=== PATIENT | male | born 1960 | race Caucasian/White ===

== ENCOUNTER 2017-05-29 06:36 | Inpatient (IN) | payer SELFPAY ==
--- NOTE | 2017-05-29 06:43 | CPEKG ---
Heart Rate: 104 RR Interval: 577 P-R Interval: 108 QRSD Interval: 86 QT Interval: 348 QTC Interval: 458 P [place]: 36 QRS [place]: -39 T Wave [place]: 33 EKG Severity - OTHERWISE NORMAL ECG - EKG Impression: SINUS TACHYCARDIA EKG Impression: LEFT AXIS DEVIATION Electronically Signed By: Tanner Lyons 29-May-2017 15:57:00
[2017-05-29] MEDS ORDERED: NS 1,000 ML IV ONE ×2 (06:50→07:02)
--- NOTE | 2017-05-29 06:54 | EDPHY ---
H & P Stated Complaint: CP-cough fever Source: Patient, EMS - Personal History Current Tetanus Diphtheria and Acellular Pertussis (TDAP): Yes - Medical/Surgical History Hx Asthma: No Hx Chronic Respiratory Disease: No Hx Diabetes: No Hx Cardiac Disease: Yes Hx Renal Disease: No Hx Cirrhosis: No Hx Alcoholism: No Hx HIV/AIDS: No Hx Splenectomy or Spleen Trauma: No Other PMH: [facility] stent 04/18/16, elbow surgery - Social History Smoking Status: Heavy smoker HPI/ROS: HPI The patient presents with chest pain which began at about 1:00 a.m. this morning and awoke him from sleep. It is described as a constant, crushing pain which radiates to his left arm. It is moderate in severity. It is associated with nausea and diaphoresis. Over the last 2 days, the patient has had productive cough, fatigue, rhinorrhea, nausea. He is staying at the [facility] and says many people are sick there. He does have a history of CAD, he had cardiac stents placed in April of 2016 at [facility] he believes. He does not know any other information about this. He is supposed to be on labetalol and aspirin, however is not taking these medications for the last several months. REVIEW OF SYSTEMS Constitutional: No fever, no chills. Eyes: No discharge. ENT: No sore throat. Cardiovascular: Positive for chest pain, no palpitations. Respiratory: Positive for cough, no shortness of breath. Gastrointestinal: No abdominal pain, no vomiting. Genitourinary: No hematuria. Musculoskeletal: No back pain. Skin: No rashes. Neurological: No headache. PMHx: CAD, stents in place from outside hospital Soc Hx: 1/2 pack per day smoker, homeless, usually resides in [place] PHYSICAL General Appearance: Alert, no distress Eyes: Pupils equal and round no pallor or injection ENT, Mouth: Mucous membranes dry Respiratory: There are no retractions, lungs are clear to auscultation Cardiovascular: Tachycardic rate, regular rhythm Gastrointestinal: Abdomen is soft and non-tender, no masses, bowel sounds normal Neurological: A&O, moves all extremities Skin: Warm and dry, no rashes Musculoskeletal: Neck is supple non tender Extremities: symmetrical, full range of motion Psychiatric: Patient is oriented X 3, there is no agitation (Riguzzi,Anh) Constitutional: Initial Vital Signs Temperature (C) 38 C 05/29/17 06:40 Heart Rate 100 05/29/17 06:40 Respiratory Rate 18 05/29/17 06:40 Blood Pressure 130/77 H 05/29/17 06:40 O2 Sat (%) 92 05/29/17 06:40 O2 Delivery Mode Room Air O2 (L/minute) 2 Allergies/Adverse Reactions: No Known Allergies Allergy (Unverified 05/29/17 06:39) Home Medications: Medication Instructions Recorded NK [No Known Home Meds] 05/29/17 Medical Decision Making - Diagnostics EKG Interpretation: EKG: Complete interpretation has been separately recorded in the [employer] archive. Summary impression: Normal sinus rhythm with some T-wave flattening in inferior leads (Anh Link) Imaging Results: Imaging Impressions Chest X-Ray 05/29/17 06:50 Impression: 1. Focal consolidation suspected inferior aspect right upper lobe in the suprahilar region. Consolidation suspected inferior aspect right upper lobe in the suprahilar region. Consider follow-up chest x-ray after treatment to confirm resolution and to rule out mass. These findings were discussed by telephone with Dr. Tanner Lyons at 0800 hrs. ED Course/Re-evaluation: Patient is also seen by me at 7:05 a.m.. I reviewed the history of coronary artery disease and stent placed in [place] in April 2016. He has done well until last night and had crushing pressure-type chest discomfort with radiation. He also has shortness of breath. Patient is also ill with fever and likely influenza Heart lung exam shows mild tachycardia and mild inspiratory expiratory rhonchi. EKG reviewed by me shows sinus tachycardia normal interval. Left axis deviation. QRS otherwise normal no significant ST elevation or depression. No arrhythmia. The rate is 104 Cardiac labs are sent. Influenza is sent. IV of normal saline with initial target of 1 L. Tylenol for his fever. Patient is already received aspirin for chest pain. On re-evaluation patient is stable. He has influenza. He is given Tamiflu in the emergency department I consulted discussed case with Dr. Gonzales, hospitalist, who agrees to the admission (Tanner Lyons) Differential Diagnosis: This is a 56-year-old male with past medical history of CAD take by his report, status post cardiac stenting in April of 2016 who presents brought in by ambulance from the [facility] for chest pain which has been present since 1:00 a.m. and awoke him from sleep. This is in the setting of 2 days of a cough, rhinorrhea, fevers, nausea. Differential diagnosis includes ACS, influenza, pneumonia, pericarditis. Patient received aspirin in the field as well as nitroglycerin with some improvement in his symptoms. Plan for chest x-ray, EKG, labs include influenza testing. He will likely require admission to the hospital. At 7:00 a.m., at change of shift, Dr. Lyons assumed care of this patient pending all of his laboratory testing and chest x-ray. (Anh Link) - Data Points Laboratory Results: Laboratory Results 05/29/17 06:59 05/29/17 06:45 05/29/17 05/29/17 05/29/17 06:59 06:59 06:45 WBC 4.25 10^3/uL 10^3/uL (3.80-9.50) RBC 4.53 10^6/uL 10^6/uL (4.40-6.38) Hgb 15.3 g/dL g/dL (13.7-17.5) Hct 41.7 % % (40.0-51.0) MCV 92.1 fL fL (81.5-99.8) MCH 33.8 pg pg (27.9-34.1) MCHC 36.7 g/dL g/dL (32.4-36.7) RDW 13.9 % % (11.5-15.2) Plt Count 75 10^3/uL L 10^3/uL (150-400) MPV 12.3 fL H fL (8.7-11.7) Neut % (Auto) 87.3 % H % (39.3-74.2) Lymph % (Auto) 4.5 % L % (15.0-45.0) Emmet % (Auto) 7.5 % % (4.5-13.0) Eos % (Auto) 0.0 % L % (0.6-7.6) Baso % (Auto) 0.2 % L % (0.3-1.7) Nucleat RBC Rel Count 0.0 % % (0.0-0.2) Absolute Neuts (auto) 3.71 10^3/uL 10^3/uL (1.70-6.50) Absolute Lymphs (auto) 0.19 10^3/uL L 10^3/uL (1.00-3.00) Absolute Monos (auto) 0.32 10^3/uL 10^3/uL (0.30-0.80) Absolute Eos (auto) 0.00 10^3/uL L 10^3/uL (0.03-0.40) Absolute Basos (auto) 0.01 10^3/uL L 10^3/uL (0.02-0.10) Absolute Nucleated RBC 0.00 10^3/uL 10^3/uL (0-0.01) Immature Gran % 0.5 % % (0.0-1.1) Immature Gran # 0.02 10^3/uL 10^3/uL (0.00-0.10) Sodium 133 mEq/L L mEq/L (135-145) Potassium 4.2 mEq/L mEq/L (3.5-5.2) Chloride 97 mEq/L mEq/L (97-110) Carbon Dioxide 25 mEq/l mEq/l (22-31) Anion Gap 11 mEq/L mEq/L (8-16) BUN 18 mg/dL mg/dL (7-23) Creatinine 1.0 mg/dL mg/dL (0.7-1.3) Estimated GFR > 60 Glucose 126 mg/dL H mg/dL (70-100) Calcium 8.3 mg/dL L mg/dL (8.5-10.4) Troponin I 0.019 ng/mL ng/mL (0.000-0.034) Nasal Influenza A PCR FLU A DETECTED (NEGATIVE) Nasal Influenza B PCR NEGATIVE FOR FLU B (NEGATIVE) Medications Given: Acetaminophen (Tylenol) 1,000 mg PO Q8 LAM Stop: 11/25/17 13:59 Last Admin: 05/29/17 13:01 Dose: 1,000 mg Aspirin Buffered (Aspirin Ec) 81 mg PO DAILY LAM Stop: 11/25/17 10:59 Last Admin: 05/29/17 11:59 Dose: 81 mg Azithromycin 500 mg/ Dextrose 255 mls @ 255 mls/hr IV DAILY [facility] PRN Reason: Protocol Stop: 06/28/17 10:59 Last Admin: 05/29/17 13:01 Dose: 255 mls Ceftriaxone Sodium/Dextrose (Rocephin 1 Gm (Premix)) 50 mls @ 100 mls/hr IV DAILY LAM PRN Reason: Protocol Stop: 06/28/17 10:59 Last Admin: 05/29/17 11:59 Dose: 50 mls Discontinued Medications Acetaminophen (Tylenol) 1,000 mg PO EDNOW ONE Stop: 05/29/17 07:03 Last Admin: 05/29/17 07:17 Dose: 1,000 mg Sodium Chloride (Ns) 1,000 mls @ 0 mls/hr IV EDNOW ONE; Wide Open PRN Reason: Protocol Stop: 05/29/17 06:51 Last Admin: 05/29/17 06:59 Dose: 1,000 mls Sodium Chloride (Ns) 1,000 mls @ 0 mls/hr IV EDNOW ONE; Wide Open PRN Reason: Protocol Stop: 05/29/17 07:03 Last Admin: 05/29/17 07:17 Dose: 1,000 mls Ibuprofen (Motrin) 600 mg PO EDNOW ONE Stop: 05/29/17 07:51 Last Admin: 05/29/17 07:53 Dose: 600 mg Ibuprofen (Motrin) 400 mg PO ONCE ONE Stop: 05/29/17 14:31 Last Admin: 05/29/17 14:31 Dose: 400 mg Oseltamivir Phosphate (Tamiflu) 75 mg PO EDNOW ONE Stop: 05/29/17 07:50 Last Admin: 05/29/17 07:52 Dose: 75 mg Departure - Departure Disposition: [facility] Inpatient Acute Clinical Impression: Chest pain Qualifiers: Chest pain type: unspecified Qualified Code(s): R07.9 - Chest pain, unspecified CAD (coronary artery disease) Qualifiers: Coronary Disease-Associated Artery/Lesion type: unspecified vessel or lesion type [place] vs. transplanted heart: [place] heart Associated angina: angina presence unspecified Qualified Code(s): I25.10 - Atherosclerotic heart disease of [place] coronary artery without angina pectoris Condition: Fair
[2017-05-29] MEDS ORDERED: ACETAMINOPHEN 500 MG TAB PO ONE (07:02)
[2017-05-29 07:03] LABS: PLATELET COUNT 75 10^3/uL (150-400)
[2017-05-29] MEDS ORDERED: OSELTAMIVIR PHOSPHATE 75 MG CAP PO ONE (07:49)
[2017-05-29] MEDS ORDERED: IBUPROFEN 600 MG TAB PO ONE ×2 (07:50)
[2017-05-29] MEDS ORDERED: OSELTAMIVIR PHOSPHATE 75 MG CAP ONE (07:50)
[2017-05-29] MEDS ORDERED: ONDANSETRON DISINTEGRATING 4 MG TAB PO PRN (10:53)
[2017-05-29] MEDS ORDERED: ONDANSETRON 4 MG/2 ML VIAL IVP PRN (10:53)
[2017-05-29] MEDS ORDERED: IOPAMIDOL (ISOVUE-300) 100 ML BTL ONE (11:28)
--- NOTE | 2017-05-29 11:34 | GHP ---
[f rep st] HISTORY AND PHYSICAL DATE OF ADMISSION: 05/29/2017 HISTORY OF PRESENT ILLNESS: The patient is a 56-year-old gentleman with a history of coronary diseas e and stents placed in April 2016 in [place], anatomy unknown. He is currently traveling [facility] on his way back to [place]. He is originally from [place]. For the last 24 hours to 48 hours, he has had some myalgias and cough and fever, chills and malaise. Overnight he had chest scott n that radiated to his left arm with diaphoresis. This is similar to his known anginal equivalents. He has also had fatigue, rhinorrhea, nausea. Did not get a flu shot. He has been in the [facility] for the last couple of days with a number sick contacts. He has not had lower extremity edema, PND or orthopnea and he does not give a history of anginal symp toms. He is not taking any medicines. He had previously been on labetalol and aspirin and recalls t aking Plavix for year following his surgery. REVIEW OF SYSTEMS: Complete 10-point review of systems conducted, negative except noted in the HPI. PAST MEDICAL HISTORY: Coronary disease, hypertension. ALLERGIES: No known drug allergies. CURRENT MEDICATIONS: None. FAMILY HISTORY: Reviewed and unremarkable. SOCIAL HISTORY: He is a smoker. He is [place]. 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 He claims to have never misspelled a tattoo. He denies heavy alcohol use. PHYSICAL EXAM: VITAL SIGNS: Temp 38, T-max 39.3, now 37.7. Blood pressure 118/65, pulse 86, breath ing 18 times a minute, 94% on room air. GENERAL: No acute distress. HEENT: Sclerae anicteric. Or opharynx clear. Mucous membranes are moist. NECK: Supple without lymphadenopathy or JVD. LUNGS: Rhonchi bilaterally, right greater than left. HEART: S1, S2 without murmurs. ABDOMEN: Soft, nonte nder, nondistended. LOWER EXTREMITIES: Without edema. Calves nontender. SKIN: Without rash. The re are multiple tattoos. LABS: White count 4.3, hematocrit 41, platelets are 75,000, no prior. Sodium 133, potassium 4.2, ch loride 97, bicarb 25, BUN 18, creatinine 1.0, glucose 126. Troponin 0.019. Influenza A positive. C hest x-ray, interpreted by me, shows right upper lobe infiltrate with bilateral airspace disease. It is a mass like looking infiltrate. EKG, interpreted by me, shows sinus tach at 104 with borderline left axis deviation. There are no ST or T-wave changes. I discussed the case with Dr. Anh Link. ASSESSMENT AND PLAN: A 56-year-old gentleman with influenza A, pneumonia, chest pain. 1. Influenza A. We will treat him with Tamiflu. 2. Pneumonia. I think the patient has a secondary bacterial pneumonia. We will start ceftriaxone a nd azithromycin. I am not worried about aspiration. We will check a CT given his longstanding smoki ng history as it is somewhat mass-like looking. 3. Chest pain. This is concerning for his anginal equivalent. He has an indeterminate troponin. W e will start him on aspirin, check a lipid panel, cycle his troponins and follow on telemetry. Stres s test may be indicated but will hold off on it today. 4. Thrombocytopenia, mild, follow. 5. Hyponatremia. This is likely secondary to poor p.o. intake. We will follow. 6. Hyperglycemia, mild, follow. DISPOSITION: Inpatient status. /[id number]/MODL
[2017-05-29] MEDS: ASPIRIN EC 81 MG TAB PO SCH (11:59)
[2017-05-29] MEDS: AZITHROMYCIN IV 500 MG in D5W 250 ML IV SCH (13:01)
[2017-05-29] MEDS: ACETAMINOPHEN 500 MG TAB PO SCH ×2 (13:01→20:33)
[2017-05-29] MEDS ORDERED: ACETAMINOPHEN 325 MG TAB PO SCH (14:00)
[2017-05-29] MEDS ORDERED: IBUPROFEN 200 MG TAB PO ONE (14:30)
[2017-05-29] MEDS: OSELTAMIVIR PHOSPHATE 75 MG CAP PO SCH (17:06)
--- NOTE | 2017-05-29 17:22 | PDMN ---
Medical Necessity Medical necessity: Pt meets INPT criteria per and MCG M-282 Pneumonia, Community Acquired (est. LOS >2 MN for eval/tx of influenza A with secondary bacterial pneumonia requiring IVABx x2; chest pain with hx CAD/stents, hyponatremia, hyperglycemia, thrombocytopenia).
[2017-05-30 04:04] LABS: PLATELET COUNT 65 10^3/uL (150-400)
[2017-05-30] MEDS: ACETAMINOPHEN 500 MG TAB PO SCH ×3 (05:24→21:28)
[2017-05-30] MEDS: GUAIFENESIN/DM 10 ML UDCUP PO PRN ×2 (05:37→12:27)
[2017-05-30] MEDS: OSELTAMIVIR PHOSPHATE 75 MG CAP PO SCH ×2 (07:46→19:05)
[2017-05-30] MEDS: ASPIRIN EC 81 MG TAB PO SCH (07:47)
[2017-05-30] MEDS: AZITHROMYCIN IV 500 MG in D5W 250 ML IV SCH (08:53)
[2017-05-30] MEDS ORDERED: ENOXAPARIN 40 MG/0.4 ML SYR SC SCH (09:00)
[2017-05-30] MEDS ORDERED: NS 1,000 ML IV ONE (09:00)
--- NOTE | 2017-05-30 09:43 | HOSPPROG ---
Hospitalist Progress Note Assessment/Plan: 56 yo M w influenza, CAP, hypoxemic respiratory failure influenza: tamiflu CAP: secondary to influenza no mass seen on CT but limited by dense infiltrate follow up CT in 6 months day 06/28 abx. cuurently ceftriaxone azithro thrombocytopenia: per pt, chronic hold LMWH tobacco: rec cessation dispo: inpatient Subjective: case d/w dr sandoval. CT w dense r sided pneumonia (interp by me) Objective: Vital Signs Temp Pulse Resp BP Pulse Ox 36.6 C 67 18 90/64 L 94 05/30/17 08:00 05/30/17 08:00 05/30/17 08:00 05/30/17 08:00 05/30/17 08:00 Laboratory Results 05/30/17 03:45 05/30/17 03:45 05/29/17 05/30/17 05/31/17 05:59 05:59 05:59 Intake Total 950 Output Total 495 Balance 455 - Physical Exam Constitutional: no apparent distress, appears nourished Eyes: PERRL, anicteric sclera Ears, Nose, Mouth, Throat: moist mucous membranes, hearing normal Cardiovascular: regular rate and rhythym, no murmur, rub, or gallop Respiratory: no respiratory distress, no rales or rhonchi Gastrointestinal: normoactive bowel sounds, soft, non-tender abdomen Genitourinary: no bladder fullness, No patel in urethra Skin: warm, normal color Musculoskeletal: full muscle strength Neurologic: AAOx3 ICD10 Worksheet Patient Problems: Problems Problem Status Onset CAD (coronary artery disease) Acute Chest pain Acute
--- NOTE | 2017-05-30 11:24 | ASMTCMCOM ---
CM Note CM Note Notes: Chart reviewed. %% year old make from homeless custodial with influenza A and pneumonia. On IV ANTB. Likely dc back to custodial when medically stable will meet with him to provide resources if needed, CM to follow. Date Signed: 05/30/2017 11:23 AM Electronically Signed By:Isabel Calderón RN
[2017-05-30] MEDS: KETOROLAC 15 MG/1 ML SDV IVP PRN ×2 (15:07→21:29)
--- NOTE | 2017-05-30 21:13 | HOSPPROG ---
Hospitalist Progress Note Assessment/Plan: Called to pts bedside as his BP is low. Systolic 80's Upon arrival latest BP is 77/48 He is diaphoretic He reports fever difficult with taking a deep breath + cough + void, but concentrated BP is typically normal, no hx of hypotension No urinary sx's O: VSS reviewed, Hypotension, HR 90s, RR 16, saturation on 1 L Gen: diaphoretic HEENT: MM Dry CV: RRR Lungs: decreased bilateral, crackles right side abd: s/nt/nd ext: no edema #possible sepsis #pneumonia #influenza #hx of CAD, denies CHF plan: he does not have any leukocytosis and the process is likely viral will cont abx as is and check a pc and repeat cbc. If these are abnormal will consider changing abx cont with tamiflu Fluid challenge. If BP cont to be low, will need transfer to the ICU for pressors total critical care time is 33 mins. Objective: Vital Signs Temp Pulse Resp BP Pulse Ox 36.6 C 66 14 85/53 L 96 05/30/17 20:00 05/30/17 20:00 05/30/17 20:00 05/30/17 20:00 05/30/17 20:00 Laboratory Results 05/30/17 03:45 05/30/17 03:45 05/29/17 05/30/17 05/31/17 05:59 05:59 05:59 Intake Total 950 4761 Output Total 747 750 Balance 455 0366 ICD10 Worksheet Patient Problems: Problems Problem Status Onset CAD (coronary artery disease) Acute Chest pain Acute
[2017-05-30] MEDS ORDERED: NS BOLUS 1000 ML (Wide open) IV ONE (21:30)
[2017-05-30 21:47] LABS: PLATELET COUNT 58 10^3/uL (150-400)
[2017-05-30] MEDS ORDERED: ALTEPLASE 2 MG VIAL IVP PRN (22:08)
[2017-05-30] MEDS: NS 1,000 ML IV SCH (22:20)
[2017-05-31] MEDS ORDERED: NS BOLUS 1000 ML (Wide open) IV ONE (03:00)
[2017-05-31] MEDS: GUAIFENESIN/DM 10 ML UDCUP PO PRN ×4 (04:05→18:45)
[2017-05-31] MEDS: KETOROLAC 15 MG/1 ML SDV IVP PRN ×3 (06:27→21:18)
[2017-05-31] MEDS: ACETAMINOPHEN 500 MG TAB PO SCH ×3 (06:27→21:19)
[2017-05-31] MEDS: NS 1,000 ML IV SCH ×2 (06:28→14:14)
[2017-05-31] MEDS: OSELTAMIVIR PHOSPHATE 75 MG CAP PO SCH ×2 (08:44→18:02)
[2017-05-31] MEDS: ASPIRIN EC 81 MG TAB PO SCH (08:44)
[2017-05-31] MEDS: AZITHROMYCIN IV 500 MG in D5W 250 ML IV SCH (09:36)
[2017-05-31] MEDS: IPRATROPIUM/ALBUTEROL 3 ML DEYVIAL IH SCH ×2 (11:03→16:29)
--- NOTE | 2017-05-31 15:35 | HOSPPROG ---
Hospitalist Progress Note Assessment/Plan: 56 yo M w influenza, CAP, hypoxemic respiratory failure # Acute influenza A - continue tamiflu # Acute CAP- concern for secondary bacterial infection - Procalcitonin > 6 CT chest (personally reviewed and interpreted) confirms bilateral infiltrates - cont ceftriaxone and azithromycin # AHRF - 2/2 CAP - wheezing on exam - add duonebs - cont tamiflu and antibiotics # Acute hypotension 2/2 infection - continue fluid resuscitation until PO adequate # thrombocytopenia: per pt, chronic- possibly due to ETOH - hold LMWH # tobacco: rec cessation # dispo: inpatient as requires ongoing IVF support and monitoring I have discussed case with RN - pt should not require PICC as responding appropriately to IVF Subjective: still feels terrible Objective: Vital Signs Temp Pulse Resp BP Pulse Ox 36.7 C 63 15 101/67 94 05/31/17 11:56 05/31/17 11:56 05/31/17 11:56 05/31/17 11:56 05/31/17 11:56 Laboratory Results 05/30/17 21:30 05/31/17 04:26 05/30/17 05/31/17 06/01/17 05:59 05:59 05:59 Intake Total 950 5038 1260 Output Total 495 1075 625 Balance 455 3963 635 - Physical Exam Constitutional: appears nourished Eyes: anicteric sclera Ears, Nose, Mouth, Throat: moist mucous membranes Cardiovascular: regular rate and rhythym Respiratory: rhonchi, No expiratory wheeze Gastrointestinal: normoactive bowel sounds Genitourinary: no bladder fullness Skin: warm Musculoskeletal: No asymmetric calves Neurologic: AAOx3 Psychiatric: interacting appropriately Lymph, Heme, Immunologic: no cervical LAD ICD10 Worksheet Patient Problems: Problems Problem Status Onset CAD (coronary artery disease) Acute Chest pain Acute
[2017-06-01] MEDS: IPRATROPIUM/ALBUTEROL 3 ML DEYVIAL IH SCH ×5 (00:34→21:09)
[2017-06-01] MEDS: KETOROLAC 15 MG/1 ML SDV IVP PRN ×3 (04:20→20:17)
[2017-06-01] MEDS: ACETAMINOPHEN 500 MG TAB PO SCH ×3 (04:22→21:42)
[2017-06-01] MEDS: ASPIRIN EC 81 MG TAB PO SCH (08:48)
[2017-06-01] MEDS: OSELTAMIVIR PHOSPHATE 75 MG CAP PO SCH ×2 (08:48→18:22)
[2017-06-01] MEDS: GUAIFENESIN/DM 10 ML UDCUP PO PRN ×2 (09:12→15:50)
[2017-06-01] MEDS: AZITHROMYCIN IV 500 MG in D5W 250 ML IV SCH (09:56)
[2017-06-01] MEDS ORDERED: PROTOCOL K PHOSPHATE 1 DOSE IV PRN (11:09)
--- NOTE | 2017-06-01 17:24 | HOSPPROG ---
Hospitalist Progress Note Assessment/Plan: 56 yo M w influenza, CAP, hypoxemic respiratory failure # Acute influenza A - continue tamiflu # Acute CAP- concern for secondary bacterial infection - Procalcitonin > 6 CT chest (personally reviewed and interpreted) confirms bilateral infiltrates - cont ceftriaxone and azithromycin - transition to p. O. levofloxacin at disposition # AHRF - 2/2 CAP - wheezing on exam- oxygen saturation 96% on 2 L - continue duonebs - cont tamiflu and antibiotics - wean oxygen as able # Acute hypotension 2/2 infection - improved after fluid resuscitation- systolic blood pressure now 110-120 - DC IV fluids - continue to monitor # thrombocytopenia: per pt, chronic- possibly due to ETOH - hold LMWH # tobacco: rec cessation # dispo: inpatient as requires ongoing IVF support and monitoring I have discussed case with RN - we will discontinue IV fluid resuscitation patient's systolic blood pressures are improved p. O. intake improving Subjective: Feeling better Objective: Vital Signs Temp Pulse Resp BP Pulse Ox 36.9 C 76 18 122/73 H 91 L 06/01/17 15:58 06/01/17 15:58 06/01/17 15:58 06/01/17 15:58 06/01/17 15:58 Laboratory Results 06/01/17 04:17 06/01/17 04:17 05/31/17 06/01/17 06/02/17 05:59 05:59 05:59 Intake Total 5038 5280 625 Output Total 1075 2750 1350 Balance 3963 2530 -725 - Physical Exam Constitutional: unkempt Eyes: anicteric sclera Ears, Nose, Mouth, Throat: moist mucous membranes Cardiovascular: regular rate and rhythym Respiratory: no respiratory distress, No expiratory wheeze Gastrointestinal: normoactive bowel sounds Genitourinary: no bladder fullness Skin: warm Musculoskeletal: No asymmetric calves Neurologic: AAOx3 Psychiatric: interacting appropriately Lymph, Heme, Immunologic: no cervical LAD ICD10 Worksheet Patient Problems: Problems Problem Status Onset CAD (coronary artery disease) Acute Chest pain Acute
[2017-06-02] MEDS: IPRATROPIUM/ALBUTEROL 3 ML DEYVIAL IH SCH ×2 (05:03→11:26)
[2017-06-02] MEDS: ACETAMINOPHEN 500 MG TAB PO SCH (06:43)
[2017-06-02] MEDS: GUAIFENESIN/DM 10 ML UDCUP PO PRN (06:47)
[2017-06-02] MEDS: KETOROLAC 15 MG/1 ML SDV IVP PRN (08:23)
[2017-06-02] MEDS: OSELTAMIVIR PHOSPHATE 75 MG CAP PO SCH (08:24)
[2017-06-02] MEDS: ASPIRIN EC 81 MG TAB PO SCH (08:24)
[2017-06-02] MEDS: AZITHROMYCIN IV 500 MG in D5W 250 ML IV SCH (08:24)
[2017-06-02 08:37] VITALS: TEMP 98.3
[2017-06-02 12:11] VITALS: BP 142/83; PULSE 62; RESP 18; O2SAT 94
--- NOTE | 2017-06-02 18:42 | GDS ---
[f rep st] DISCHARGE SUMMARY DISCHARGE DIAGNOSES: Include: 1. Acute influenza A. 2. Acute community-acquired pneumonia, presumed secondary to bacterial. 3. Acute hypoxic respiratory failure. 4. Sepsis secondary to pneumonia. 5. Homelessness. HISTORY OF PRESENT ILLNESS: This is a 56-year-old male, who presented in acute respiratory distress. For details of patient's initial presentation, please see the history and physical dated 8. CONSULTATIVE SERVICES: None. PROCEDURES: A CT chest for the pain and confirms multilobar pneumonia. HOSPITAL COURSE BY ISSUE: 1. Acute influenza A. Patient was initiated on Tamiflu and will complete his final day of treatment post disposition. 2. Multilobar pneumonia, presumed bacterial. The patient had confirmed infiltrate in both lung fiel ds. Procalcitonin was greater than 6, and the decision to continue antibiotic therapy with made. Th e patient will complete a 7-day course of antibiotics with 2 doses of 750 mg levofloxacin daily post disposition. 3. Sepsis. The patient received aggressive fluid resuscitation with improvement in his hypotension and laboratory findings. The patient's vital signs and labs are stable on the day of disposition. 4. Acute hypoxic respiratory failure. Patient was weaned off oxygen prior to disposition. 5. Homelessness. Patient was provided discharge resources for correction and [facility]. MEDICATIONS AT THE TIME OF DISPOSITION: Please reference the medication reconciliation form printed on 06/02/2017. FOLLOWUP APPOINTMENTS: Include with PCP upon returning home to [place]. PENDING STUDIES: At the time of this dictation, include blood cultures drawn at admission which are preliminary no growth to date. I spent greater than 30 minutes in the planning and coordination of this discharge. /[id number]/MODL
--- NOTE | 2017-06-03 12:47 | ASDISCHSUM ---
Discharge Information Plan Status:Home with No Needs Medically Cleared to Leave:06/01/2017 Discharge Date:06/02/2017 03:02 PM D/C Disposition: ADT D/C Disposition:Home, Routine, Self-Care Projected Discharge Date:06/02/2017 12:00 AM Transportation at D/C: Discharge Delay Reason: Follow-Up Date:06/02/2017 12:00 AM Discharge Slot: Final Diagnosis: Placement Information Patient Contact Information Contact Name:ZOE Relationship: Address:[address] City:[place] Alternate Phone: State/Zip Code:[place] [address] Email: Financial Information Financial Class:Self-Pay Primary Plan Desc:SELF PAY Primary Plan Number: Secondary Plan Desc: Secondary Plan Number: Assessment Information [facility] CM Progress Note CM Note CM Note Notes: Chart reviewed. %% year old make from homeless assisted with influenza A and pneumonia. On IV ANTB. Likely dc back to assisted when medically stable will meet with him to provide resources if needed, CM to follow. Date Signed: 05/30/2017 11:23 AM Electronically Signed By:Isabel Calderón RN Case Management Discharge Plan Note Case Management Discharge Discharge Order Complete? Answers: Yes Patient to Obtain Answers: via MAP Medications Transportation Arranged Answers: Bus Tokens Discharge Comments Notes: Patient discharged to the streets. Bed reserved at [facility] and bus pass given. Medications provided by [facility]. Date Signed: 06/02/2017 01:28 PM Electronically Signed By:Lillian Tucker RN Intervention Information
== END 2017-06-02 15:02 | disposition home or self-care (01) | DRG 871 ==
LOC: INTOOBSV 07:59 → F2W 09:00 → OBSVTOIN 16:03
PROVIDERS: ADMIT Internal Medicine; ATTEND Internal Medicine
DX: A41.9 Sepsis, unspecified organism (principal); J10.08 Influenza due to other identified influenza virus with other specified pneumonia; J15.9 Unspecified bacterial pneumonia; J96.01 Acute respiratory failure with hypoxia; E87.1 Hypo-osmolality and hyponatremia; I95.9 Hypotension, unspecified; D69.6 Thrombocytopenia, unspecified; I25.10 Atherosclerotic heart disease of native coronary artery without angina pectoris; I25.2 Old myocardial infarction; I10 Essential (primary) hypertension; Z95.5 Presence of coronary angioplasty implant and graft; Z59.0 Homelessness; F17.210 Nicotine dependence, cigarettes, uncomplicated
CPT/HCPCS: J0456; J0696; J1650; J1885; Q9967